=== PATIENT | male | born 1985 | race Two or more races ===

== ENCOUNTER 2021-04-24 08:32 | Emergency (ER) | payer OTHER ==
[~2021-04-24] VITALS: Ht 177.8 cm; Wt 172.4 kg
[2021-04-24 08:57] VITALS: BP 175/85
[2021-04-24] MEDS ORDERED: ACETAMINOPHEN/CODEINE#3 (300/30mg) TAB PO ONE (09:00)
[2021-04-24] MEDS ORDERED: ONDANSETRON ODT 4 MG TAB PO ONE (09:00)
== END 2021-04-24 11:07 | disposition home or self-care (01) ==
LOC: ER 08:32 → EDBD 08:32 → ER 10:37
DX: S16.1XXA Strain of muscle, fascia and tendon at neck level, initial encounter (principal); S39.012A Strain of muscle, fascia and tendon of lower back, initial encounter; R51.9 Headache, unspecified; V43.52XA Car driver injured in collision with other type car in traffic accident, initial encounter; Y93.89 Activity, other specified; Y92.488 Other paved roadways as the place of occurrence of the external cause; Y99.8 Other external cause status
CPT/HCPCS: 70450; 72100; 72125; 93005; 99285; Q0162